=== PATIENT | female | born 1940 | race Caucasian/White ===

== ENCOUNTER → 2023-11-09 08:30 | Outpatient (REF) | payer MEDICARE, SELFPAY ==
[2023-11-09 09:01] LABS: Hematocrit 27.4 % (37.0-47.0); Hemoglobin 8.3 g/dL (12.0-16.0); Mean Corp Hgb Conc. 30.3 g/dL (33.0-37.0); Mean Corpuscular Hgb 26.1 pg (27.0-31.0); Mean Corpuscular Volume 86.2 fL (81.0-99.0); Mean Platelet Volume 9.1 fL (7.4-10.4); Platelet Count 690 10^3/uL (130-400); Red Blood Cell Count 3.18 10^6/uL (4.20-5.40); Red Cell Dist. Width 18.4 % (11.5-14.5); White Blood Cell Count 15.6 10^3/uL (4.8-10.8)
[2023-11-09 09:15] VITALS: BP 101/51; BP_SYST 110
[2023-11-09 09:21] LABS: Glucose - Point of Care 185 mg/dl (70-99)
[2023-11-09 10:42] VITALS: BP 105/55
[2023-11-09 10:43] VITALS: BP 105/55; BP_SYST 99
[2023-11-09 10:50] VITALS: BP 100/56
[2023-11-09 10:50] LABS: Glucose - Point of Care 166 mg/dl (70-99)
[2023-11-09 11:00] VITALS: BP 106/60
[2023-11-09 11:46] VITALS: BP 117/64
== END ==
LOC: RADI 08:30
PROVIDERS: ATTENDING PHYSICIAN Internal Medicine Hematology & Oncology; FAMILY PHYSICIAN Family Medicine; REFERRING PHYSICIAN Physician Assistant
DX: C81.93 Hodgkin lymphoma, unspecified, intra-abdominal lymph nodes (principal); D68.8 Other specified coagulation defects
CPT/HCPCS: 88305; 36415; 49180; 77012; 82962; 85027; 85610; 88333; 88341; 88342; 88365; 99152; 99153

== ENCOUNTER → 2023-11-24 10:46 | Outpatient (REF) | payer MEDICARE, SELFPAY ==
[2023-11-24 11:16] LABS: % Basophils 0.4 % (0-2); % Eosinophils 0.1 % (0-6); % Immature Granulocytes 0.9 % (0-0.5); % Lymphocytes 5.3 % (20.5-51.1); % Monocytes 6.3 % (1.7-9.3); Absolute Basophils 0.1 10^3/uL (0-0.2); Absolute Immature Granulocytes 0.1 10^3/uL (0-0.05); Absolute Lymphocytes 0.8 10^3/uL (1.2-3.4); Absolute Neutrophils 13.2 10^3/uL (1.4-6.5); Hematocrit 28.1 % (37.0-47.0); Hemoglobin 8.6 g/dL (12.0-16.0); Mean Corp Hgb Conc. 30.6 g/dL (33.0-37.0); Mean Corpuscular Hgb 26.3 pg (27.0-31.0); Mean Corpuscular Volume 85.9 fL (81.0-99.0); Mean Platelet Volume 9.2 fL (7.4-10.4); Nucleated Red Blood Cells % 0 %; Platelet Count 652 10^3/uL (130-400); Red Blood Cell Count 3.27 10^6/uL (4.20-5.40); Red Cell Dist. Width 19.5 % (11.5-14.5); White Blood Cell Count 15.2 10^3/uL (4.8-10.8)
[2023-11-24 11:20] VITALS: BP 114/55; BP_SYST 103
[2023-11-24 11:28] LABS: INR 1.44; PT 17.3 Sec (11.4-14.6)
[2023-11-24] MEDS: ATIVAN 0.5 MG IV (12:24)
[2023-11-24] MEDS: NSS (PRESERVATIVE FREE) 0.25 ML IV (12:24)
[2023-11-24 12:26] VITALS: BP 121/60
[2023-11-24 13:11] VITALS: BP 108/57; BP_SYST 95
[2023-11-24 13:17] VITALS: BP 91/70
[2023-11-24 13:20] VITALS: BP 111/59
== END ==
LOC: RADI 10:46
PROVIDERS: ATTENDING PHYSICIAN Internal Medicine Hematology & Oncology; FAMILY PHYSICIAN Family Medicine
DX: D68.8 Other specified coagulation defects (principal); D68.9 Coagulation defect, unspecified
CPT/HCPCS: 88305; 88311; 88312; 36415; 38222; 77012; 85025; 85610; 88313; 88341; 88342

== ENCOUNTER → 2023-12-03 10:35 | Outpatient (REF) | payer MEDICARE, SELFPAY | LOC: PET 10:35 | PROVIDERS: ATTENDING PHYSICIAN Internal Medicine Hematology & Oncology | DX: C85.96 Non-Hodgkin lymphoma, unspecified, intrapelvic lymph nodes (principal) | CPT/HCPCS: 36415; 80053; 85025 ==

== ENCOUNTER → 2023-12-09 18:04 | Outpatient (REF) | payer MEDICARE, SELFPAY | LOC: RCS 18:04 | PROVIDERS: ATTENDING PHYSICIAN Internal Medicine Hematology & Oncology; FAMILY PHYSICIAN Family Medicine | DX: C81.13 Nodular sclerosis Hodgkin lymphoma, intra-abdominal lymph nodes (principal) | CPT/HCPCS: 93306 ==

== ENCOUNTER → 2023-12-10 07:49 | Outpatient (REF) | payer MEDICARE, SELFPAY ==
[2023-12-10 08:43] LABS: Glucose - Point of Care 195 mg/dl (70-99)
[2023-12-10 08:48] VITALS: BP 120/82; BP_SYST 104
[2023-12-10] MEDS: ANCEF 10 IV (09:13)
[2023-12-10 10:35] VITALS: BP 148/67; BP_SYST 90
[2023-12-10 10:40] VITALS: BP 113/93; BP_SYST 88
[2023-12-10 10:53] VITALS: BP 113/93
== END ==
LOC: RADI 07:49
PROVIDERS: ATTENDING PHYSICIAN Internal Medicine Hematology & Oncology; FAMILY PHYSICIAN Family Medicine
DX: C81.13 Nodular sclerosis Hodgkin lymphoma, intra-abdominal lymph nodes (principal)
CPT/HCPCS: 36561; 76937; 77001; 82962; 99152; 99153; C1788

== ENCOUNTER 2024-03-02 14:38 | Outpatient (RCR) | payer MEDICARE, SELFPAY | END 2024-03-02 23:59 | disposition home or self-care (01) | LOC: RPT 14:38 | PROVIDERS: ATTENDING PHYSICIAN Internal Medicine Hematology & Oncology; FAMILY PHYSICIAN Family Medicine | DX: C81.13 Nodular sclerosis Hodgkin lymphoma, intra-abdominal lymph nodes (principal); R20.0 Anesthesia of skin | CPT/HCPCS: 97014; 97032; 97110; 97112; 97162 ==

== ENCOUNTER 2024-03-23 12:46 | Outpatient (RCR) | payer MEDICARE, SELFPAY | END 2024-03-23 23:59 | disposition home or self-care (01) | LOC: RPT 12:46 | PROVIDERS: ATTENDING PHYSICIAN Internal Medicine Hematology & Oncology; FAMILY PHYSICIAN Family Medicine | DX: C81.13 Nodular sclerosis Hodgkin lymphoma, intra-abdominal lymph nodes (principal); Z73.6 Limitation of activities due to disability | CPT/HCPCS: 97014; 97110; 97112 ==

== ENCOUNTER 2024-04-06 13:55 | Outpatient (RCR) | payer MEDICARE, SELFPAY | END 2024-04-06 15:26 | disposition home or self-care (01) | LOC: RPT 13:55 | PROVIDERS: ATTENDING PHYSICIAN Internal Medicine Hematology & Oncology; FAMILY PHYSICIAN Family Medicine | DX: C81.13 Nodular sclerosis Hodgkin lymphoma, intra-abdominal lymph nodes (principal); Z73.6 Limitation of activities due to disability; G62.0 Drug-induced polyneuropathy; T45.1X5D Adverse effect of antineoplastic and immunosuppressive drugs, subsequent encounter; R26.89 Other abnormalities of gait and mobility | CPT/HCPCS: 97110; 97112 ==